=== PATIENT | male | born 1940 | race Caucasian/White ===

== ENCOUNTER → 2019-04-24 | Day surgery (SDC) | payer MEDICARE, BC ==
[2019-04-16 15:09] VITALS: BMI 21.9
[~2019-04-24] MED LIST: Bupivacaine PF 0.75% SDV 10 ML ONE; Cyclopentolate 1% Opth Drop 2 ML BOT ONE; Dexamethasone 20 MG/5 ML VIAL ONE; Enoxaparin Sodium 30 MG/0.3 ML SYRINGE ONE; Fentanyl 100 MCG/2 ML VIAL ONE; Fluorouracil 100 MG, Enoxaparin Sodium 25 MG, EPINEPHrine 0.3 MG in Ophthalmic Irrigati... IRR SCH; Glycopyrrolate 0.2 MG/ML 5 ML SYRINGE ONE; Indocyanine Green 25 MG/10 ML VIAL ONE; Lidocaine 1% PF 5 ML VIAL ONE; Lidocaine 4% PF 5 ML AMP ONE; Maxitrol 0.1% Opth Oint 3.5 GM TUBE ONE; Ondansetron PF 4 MG/2 ML Vial ONE; PHENYLEPHRINE-NS 100 MCG/ML 10 ML SYRINGE ONE; PROPOFOL 200 MG/20 ML VIAL ONE; Phenylephrine 2.5% Ophth Soln 5 ML BOT ONE; Triamcinolone 40 MG/ML VIAL ONE; ePHEDrine/0.9% NaCl/PF SYRINGE 50 mg/10 ml ONE
--- NOTE | 2019-04-24 11:32 | OP ---
DATE OF PROCEDURE: 04/24/2019 PREOPERATIVE DIAGNOSIS: Macular hole, right eye. POSTOPERATIVE DIAGNOSIS: Macular hole, right eye. PROCEDURES PERFORMED: Pars plana vitrectomy and internal limiting membrane peel, right eye. ANESTHESIA: General endotracheal anesthesia. PROCEDURE IN DETAIL: The patient was identified in the preoperative holding area. Appropriate informed consent for the planned surgical procedure on the right eye had been obtained. The patient was transported to the operative suite. Appropriate cardiopulmonary monitoring was established. General endotracheal anesthesia was initiated. Retrobulbar block was placed. The patient was prepped and draped in the usual sterile manner for ophthalmic surgery in the right eye. Lid speculum was placed in the right eye. A 27-gauge trocar was placed in the conjunctiva and sclera superotemporally, inferotemporally, and supranasally. Infusion line was placed inferotemporally. Light pipe and vitreous cutter were inserted to the eye. Core vitrectomy was performed. Posterior hyaloid face was elevated and peeled into the retinal periphery using vacuum suction. Indocyanine green dye was infused on the posterior pole x1, identifying the internal limiting membrane and epiretinal membranes around the nerve. Internal limiting membrane was elevated at the vessel edges and peeled across the macula. Complete air-fluid exchange was performed, with 10 minutes being allowed for fluid to drain posteriorly. Periphery was inspected with indirect ophthalmoscopy and prophylactic laser was placed behind the sclerotomy sites. 28% sulfur hexafluoride gas was infused into the eye. Trocars were removed. The eye was noted to retain pressure well. Retrobulbar Kenalog and subconjunctival Ancef were placed. Antibiotic ointment was placed. Eye was patched and shielded. The patient was taken to postoperative recovery unit in good condition, having suffered no immediate perioperative complications. The patient was instructed to keep patch and shield on, avoid lifting or bending. Follow up in the morning with Dr. Blanco. Job ID: [id number]
== END | disposition home or self-care (01) ==
LOC: SDC 11:17
PROVIDERS: ATTEND Ophthalmology Retina Specialist
PROC: 08B43ZZ Excision of Right Vitreous, Percutaneous Approach (ICD-10-PCS; principal; 2019-04-24)
PROC: 08NE3ZZ Release Right Retina, Percutaneous Approach (ICD-10-PCS; 2019-04-24)
DX: H35.341 Macular cyst, hole, or pseudohole, right eye (principal)
CPT/HCPCS: 67025; J0171; J1100; J1650; J2001; J2405; J2704; J3010; J3301; J3490; J9190

== ENCOUNTER 2023-04-12 13:42 | Outpatient (CLI) | payer MEDICARE, BC ==
[2023-04-12 15:04] LABS: #Eosinphils 0.4 10x3/uL (0.0-0.5); #Monocytes 0.6 10x3/uL (0.0-1.1); #Neutrophils 3.3 10x3/uL (1.5-8.4); %Basophils 0.5 % (0.0-2.0); %Eosinophils 6.9 % (0.0-6.0); %Lymphocytes 25.3 % (18.0-47.0); %Monocytes 10.6 % (0.0-10.0); %Neutrophils 56.2 % (40.0-75.0); Hematocrit 38.9 % (38.8-50.0); Hemoglobin 13.4 g/dL (13.5-17.5); Mean Corpuscular HGB CONC 34.4 g/dL (32.0-36.0); Mean Corpuscular Hemoglobin 33.6 pg (27.0-33.0); Mean Corpuscular Volume 97.5 fl (81.2-95.1); Mean Platelet Volume 9.6 fl (7.4-10.4); Platelet Count 227 10x3/uL (150-450); RBC Distribution Width 11.9 % (11.5-14.5); Red Blood Cell (RBC) Count 3.99 10x6/uL (4.32-5.72); White Blood Cell (WBC) Count 5.9 10x3/uL (3.5-10.5)
[2023-04-12 15:29] LABS: Anion Gap 14 mmol/L (10-20); BUN (Urea Nitrogen) 17 mg/dL (8.4-25.7); Calc. Creatinine Clearance 0 mL/min (70-130); Calcium 8.6 mg/dL (7.8-10.44); Carbon Dioxide 22 mmol/L (23-31); Chloride 107 mmol/L (98-107); Estimated GFR 87; Glucose 119 mg/dL (83-110); Potassium 4.3 mmol/L (3.5-5.1); Sodium 139 mmol/L (136-145)
== END 2023-04-12 13:43 | disposition home or self-care (01) ==
LOC: LABBT 13:42
PROVIDERS: ATTEND Surgery
DX: Z01.818 Encounter for other preprocedural examination (principal); K40.20 Bilateral inguinal hernia, without obstruction or gangrene, not specified as recurrent
CPT/HCPCS: 80048; 85025; 93005; 93010

== ENCOUNTER 2023-04-18 05:41 | Day surgery (SDC) | payer MEDICARE, BC ==
[2023-04-12 14:18] VITALS: BMI 22.2
[2023-04-18] MEDS ORDERED: CEFAZOLIN 2 GM VIAL ONE (06:44)
[2023-04-18] MEDS ORDERED: Sodium Chloride 0.9% 100 ML ONE (06:44)
[2023-04-18] MEDS ORDERED: fentaNYL PF 100 MCG/2 ML SYRINGE ONE (06:52)
[2023-04-18] MEDS ORDERED: PROPOFOL 20 ML ONE (06:53)
[2023-04-18] MEDS ORDERED: Lidocaine 1% PF 5 ML VIAL ONE (06:53)
[2023-04-18] MEDS ORDERED: Rocuronium Bromide 10 MG/ML (10ML VIAL) ONE (06:53)
[2023-04-18] MEDS ORDERED: Bupivacaine 0.25% HCL 30 ML VIAL ONE (06:59)
[2023-04-18] MEDS ORDERED: EPINEPHrine 1 MG/ML VIAL ONE (06:59)
[2023-04-18] MEDS ORDERED: ePHEDrine Sulfate 50 MG/10 ML VIAL ONE (07:28)
[2023-04-18] MEDS ORDERED: PHENYLEPHRINE-NS 100 MCG/ML 10 ML SYRINGE ONE (07:31)
[2023-04-18] MEDS ORDERED: Dexamethasone 4 mg/ml Vial ONE (07:38)
[2023-04-18] MEDS ORDERED: fentaNYL 50 mcg/mL 1 mL Vial ONE (07:49)
[2023-04-18] MEDS ORDERED: SUGAMMADEX SODIUM 200 MG/2 ML VIAL ONE (08:26)
[2023-04-18] MEDS ORDERED: Ondansetron PF 4 MG/2 ML Vial ONE (08:28)
== END 2023-04-18 10:30 | disposition home or self-care (01) ==
LOC: SDC 05:41
PROVIDERS: ATTEND Surgery
PROC: 0YQA4ZZ Repair Bilateral Inguinal Region, Percutaneous Endoscopic Approach (ICD-10-PCS; principal; 2023-04-18)
DX: K40.20 Bilateral inguinal hernia, without obstruction or gangrene, not specified as recurrent (principal); I10 Essential (primary) hypertension; Z79.82 Long term (current) use of aspirin; Z79.899 Other long term (current) drug therapy; Z90.89 Acquired absence of other organs; Z88.8 Allergy status to other drugs, medicaments and biological substances
CPT/HCPCS: 49650; J0171; J3010; A4314; C1781; J1100; J2405; J2704; J3490; S0020

== ENCOUNTER 2023-10-17 14:40 | Emergency (ER) | payer MEDICARE, BC ==
[2023-10-17 15:41] LABS: #Basophils Less than 0.03 10x3/uL (0.0-0.2); #Eosinphils Less than 0.03 10x3/uL (0.0-0.7); %Basophils 0.2 % (0.0-1.0); %Lymphocytes 12.5 % (21.0-51.0); %Monocytes 19.5 % (0.0-10.0); %Neutrophils 67.5 % (42.0-75.0); Hematocrit 37.2 % (42.0-52.0); Hemoglobin 12.7 g/dL (14.0-18.0); Mean Corpuscular HGB CONC 34.1 g/dL (32.0-36.0); Mean Corpuscular Hemoglobin 33.3 pg (27.0-31.0); Mean Corpuscular Volume 97.6 fL (78.0-98.0); Mean Platelet Volume 9.4 fL (7.4-10.4); Platelet Count 161 10x3/uL (130-400); RBC Distribution Width 12.4 % (11.5-14.5); Red Blood Cell (RBC) Count 3.81 mill/uL (4.70-6.10)
[2023-10-17 15:56] LABS: ALT (SGPT) 15 U/L (8-55); AST (SGOT) 27 U/L (5-34); Albumin 3.5 g/dL (3.4-4.8); Alkaline Phosphatase 58 U/L (40-110); Anion Gap 12 mmol/L (10-20); BUN (Urea Nitrogen) 17 mg/dL (8.4-25.7); Bilirubin, Total 0.5 mg/dL (0.2-1.2); Calc. Creatinine Clearance 0 mL/min (70-130); Carbon Dioxide 23 mmol/L (23-31); Chloride 105 mmol/L (98-107); Estimated GFR 63; Globulin 2.1 g/dL (2.4-3.5); Glucose 103 mg/dL (83-110); Potassium 4.2 mmol/L (3.5-5.1); Protein, Total 5.6 g/dL (5.8-8.1); Sodium 136 mmol/L (136-145)
[2023-10-17 16:01] LABS: Troponin I 0.013 ng/mL (< 0.028)
== END 2023-10-17 16:37 | disposition home or self-care (01) ==
LOC: ERS 14:40
DX: U07.1 COVID-19 (principal); R55 Syncope and collapse; I10 Essential (primary) hypertension; W18.30XA Fall on same level, unspecified, initial encounter; Y93.89 Activity, other specified; Y92.481 Parking lot as the place of occurrence of the external cause
CPT/HCPCS: 36415; 71045; 80053; 84484; 85025; 93005; 94760